=== PATIENT | male | born 1985 | race American Indian/Alaskan Native ===

== ENCOUNTER 2017-04-28 08:43 | Emergency (ER) | payer OTHER ==
[2017-04-28] MEDS ORDERED: ASPIRIN PO ONE (09:02)
[2017-04-28] MEDS ORDERED: DILAUDID IV ONE (09:30)
[2017-04-28] MEDS ORDERED: ZOFRAN IV ONE (09:30)
[2017-04-28 10:02] LABS: Basophils % (Auto) 0.4 % (0.0-1.8); Eosinophils # (Auto) 0.1 K/mm3 (0.0-0.4); Eosinophils % (Auto) 1.6 % (0.0-4.3); Hematocrit 36.6 % (35.5-45.6); Hemoglobin 12.1 gm/dl (11.8-15.2); Lymphocytes # (Auto) 1.6 K/mm3 (1.2-5.4); Lymphocytes % (Auto) 30.4 % (13.4-35.0); Mean Corpuscular HGB Conc 33 % (32-34); Mean Corpuscular Hemoglobin 29 pg (28-32); Mean Corpuscular Volume 87 fl (84-94); Monocytes # (Auto) 0.5 K/mm3 (0.0-0.8); Monocytes % (Auto) 9.8 % (0.0-7.3); Platelet Count 210 K/mm3 (140-440); Red Blood Count 4.24 M/mm3 (3.65-5.03); Red Cell Distribution Width 13.3 % (13.2-15.2)
--- NOTE | 2017-04-28 10:13 | XRay Report ---
ROUTINE CHEST, TWO VIEWS: HISTORY: Chest pain. No comparison. There is poor inspiration with bilateral lower lobe opacities. Lower lung infiltrates or aspiration cannot be excluded. The upper lung zones are relatively clear. No large pleural effusion or pneumothorax. Heart size is within normal limits. The bony structures are grossly intact. IMPRESSION: Poor inspiration with bilateral lower lobe opacities. Correlate for pneumonia or aspiration.
[2017-04-28 10:19] LABS: INR 0.96 (0.87-1.13)
[2017-04-28 11:04] LABS: BUN/Creatinine Ratio 16; Blood Urea Nitrogen 14 mg/dL (9-20); Calcium 8.8 mg/dL (8.4-10.2); Hemolysis Index 3
--- NOTE | 2017-04-28 11:21 | XRay Report ---
AP CHEST: HISTORY: chest pain There is slightly better inspiration when comparing to the exam earlier today at 0955 hours. Bilateral lower lobe opacities are again noted and not significantly changed. The upper lung zones remain clear. Normal heart and mediastinal structures. The bony thorax is intact. IMPRESSION: No significant change in the bilateral lower lung opacities.
[2017-04-28] MEDS ORDERED: TORADOL IV ONE (11:27)
[2017-04-28 11:51] LABS: Creatine Kinase MB 1.3 ng/mL (0.0-4.0)
--- NOTE | 2017-04-28 12:03 | Cat Scan Report ---
CTA CHEST: HISTORY: Chest pain, HIV. COMPARISON: none. TECHNIQUE: Helical CT in 1.25mm intervals following IV contrast. Pulmonary embolus protocol. Sagittal and coronal reformatted images. Rotational MIP images. FINDINGS: Contrast bolus is satisfactory. No pulmonary embolus is identified. Thyroid gland: Normal. Tracheobronchial tree: Normal. Esophagus: Normal. Heart: Normal. Pericardium: Normal. Mediastinum: Normal. Lung Menendez: Patchy peribronchial infiltrates are identified in both lower lung zones. Pneumonia or aspiration should be considered. Pleural Spaces: Normal. Musculoskeletal: Normal. IMPRESSION: No evidence for pulmonary embolus. Bilateral lower lung infiltrates.
[2017-04-28] MEDS ORDERED: ROCEPHIN/NS 1 GM/50 ML 1 GM/50 ML BAG IV ONE (12:20)
[2017-04-28] MEDS ORDERED: ZITHROMAX PO ONE (12:20)
[2017-04-28] MEDS ORDERED: BACTRIM DS PO ONE (12:27)
[2017-04-28] MEDS ORDERED: cefTRIAXone 1 GM in NACL 0.9% 20 ML IV ONE (12:30)
--- NOTE | 2017-04-28 12:44 | Emergency Department Report ---
ED Chest Pain HPI - General Chief Complaint: Chest Pain Stated Complaint: CHEST PAIN Time Seen by Provider: 04/28/17 09:27 Source: patient, EMS Mode of arrival: Stretcher Limitations: No Limitations - History of Present Illness Initial Comments: 31-year-old male with a past medical history HIV with CD4 count < 200 presents to the hospital with complats of sudden onset of bilateral chest pain left greater than right that started while doing light cleaning/housework earlier this morning. Patient also complains of lower back pain. He complains of intermittent spasms and shortness of breath when pain is severe. Pain is worse with palpation, movement, and deep inspiration. Pain is rated 8/10 ub intensity. Patient denies any recent trauma, heavy lifting, cough, fever, travel, calf tenderness, or edema. Patient apply with anti-retroviral medication Severity scale (0 -10): 5 - Related Data Home Medications Medication Instructions Recorded Confirmed Last Taken Darunavir/Cobicistat [Prezcobix 1 each PO DAILY 04/28/17 04/28/17 Unknown 800 mg-150 mg Tablet] TRUVADA 200-300 mg 300 mg PO DAILY 04/28/17 04/28/17 Unknown Previous Rx's Medication Instructions Recorded Last Taken Type Azithromycin 600 mg PO 2XW #4 tablet 04/28/17 Unknown Rx Ibuprofen [Motrin] 800 mg PO Q8HR PRN #30 tablet 04/28/17 Unknown Rx Prednisone [predniSONE 10 mg 10 mg PO .TAPER #1 tab.ds.pk 04/28/17 Unknown Rx (6-Day Pack, 21 Tabs)] Sulfamethoxazole/Trimethoprim 1 each PO DAILY #14 tablet 04/28/17 Unknown Rx [Bactrim 400-80 mg Tablet] oxyCODONE /ACETAMINOPHEN [Percocet 1 tab PO Q6HR PRN #20 tablet 04/28/17 Unknown Rx 5/325] Allergies Allergy/AdvReac Type Severity Reaction Status Date / Time No Known Allergies Allergy Unverified 04/28/17 09:02 Heart Score - HEART Score History: Slightly suspicious EKG: Normal Age: < 45 Risk factors: No known risk factors Troponin: < normal limit HEART Score: 0 ED Review of Systems ROS: Stated complaint: CHEST PAIN Other details as noted in HPI Comment: All other systems reviewed and negative Other: Constitutional: No fevers chills Eyes: No eye pain visual changes ENT: No ear pain or throat pain Neck: Denies pain Respiratory: Denies cough wheezing Cardiovascular: Denies palpitations, syncope GI: Denies abdominal pain, nausea, vomiting, diarrhea : Denies dysuria Musculoskeletal: Denies back pain, joint swelling Skin: Denies rash, lesions, erythema Neurologic: Denies headache, numbness, weakness Psychiatric: Denies suicidal ideation, hallucinations ED Past Medical Hx - Past Medical History Previous Medical History?: Yes Hx HIV: Yes - Surgical History Past Surgical History?: No - Social History Smoking Status: Never Smoker Substance Use Type: None - Medications Home Medications: Home Medications Medication Instructions Recorded Confirmed Last Taken Type Azithromycin 600 mg PO 2XW #4 tablet 04/28/17 Unknown Rx Darunavir/Cobicistat [Prezcobix 1 each PO DAILY 04/28/17 04/28/17 Unknown History 800 mg-150 mg Tablet] Ibuprofen [Motrin] 800 mg PO Q8HR PRN #30 tablet 04/28/17 Unknown Rx Prednisone [predniSONE 10 mg 10 mg PO .TAPER #1 tab.ds.pk 04/28/17 Unknown Rx (6-Day Pack, 21 Tabs)] Sulfamethoxazole/Trimethoprim 1 each PO DAILY #14 tablet 04/28/17 Unknown Rx [Bactrim 400-80 mg Tablet] TRUVADA 200-300 mg 300 mg PO DAILY 04/28/17 04/28/17 Unknown History oxyCODONE /ACETAMINOPHEN [Percocet 1 tab PO Q6HR PRN #20 tablet 04/28/17 Unknown Rx 5/325] ED Physical Exam - General Limitations: No Limitations - Other Other exam information: General: Positive distress secondary to pain Head exam: Atraumatic, normocephalic Eyes exam: Normal appearance, pupils equal reactive to light, extraocular movements intact ENT: Moist mucous membrane, normal oropharynx Neck exam: Normal inspection, full range of motion, no meningismus nontender Respiratory exam: Patient splinting to breathe secondary to pain. Bilateral chest wall tenderness Cardiovascular: Normal rate and rhythm Abdomen: Soft, nondistended, and nontender, with normal bowel sounds, no rebound, or guarding Extremity: Full range of motion normal inspection no deformity, no calf tenderness or edema Back: Normal Inspection, full range of motion, no tenderness Neurologic: Alert, oriented x3, cranial nerves intact, no motor or sensory deficit Psychiatric: normal affect, normal mood Skin: Warm, dry, intact ED Course Vital Signs 04/28/17 04/28/17 04/28/17 08:54 08:57 08:59 Temperature Pulse Rate 80 81 Respiratory 13 16 Rate Blood Pressure 137/90 137/90 O2 Sat by Pulse 98 96 97 Oximetry 04/28/17 04/28/17 04/28/17 09:00 09:01 09:03 Temperature Pulse Rate 82 83 81 Respiratory 15 15 15 Rate Blood Pressure 130/93 130/93 130/93 O2 Sat by Pulse 96 96 96 Oximetry 04/28/17 04/28/17 04/28/17 09:05 09:07 09:09 Temperature Pulse Rate 79 85 79 Respiratory 20 15 22 Rate Blood Pressure 130/93 130/93 130/93 O2 Sat by Pulse 97 97 97 Oximetry 04/28/17 04/28/17 04/28/17 09:11 09:12 09:13 Temperature Pulse Rate 77 77 Respiratory 19 20 14 Rate Blood Pressure 130/93 130/93 O2 Sat by Pulse 97 97 97 Oximetry 04/28/17 04/28/17 04/28/17 09:15 09:17 09:19 Temperature Pulse Rate 79 77 73 Respiratory 14 14 13 Rate Blood Pressure 122/87 122/87 122/87 O2 Sat by Pulse 96 98 96 Oximetry 04/28/17 04/28/17 04/28/17 09:21 09:23 09:25 Temperature Pulse Rate 93 H 93 H 82 Respiratory 16 17 13 Rate Blood Pressure 122/87 122/87 122/87 O2 Sat by Pulse 95 95 97 Oximetry 04/28/17 04/28/17 04/28/17 09:27 09:29 09:30 Temperature Pulse Rate 87 83 79 Respiratory 18 12 18 Rate Blood Pressure 122/87 122/87 117/84 O2 Sat by Pulse 98 98 100 Oximetry 04/28/17 04/28/17 04/28/17 09:31 09:33 09:35 Temperature Pulse Rate 80 73 70 Respiratory 20 22 13 Rate Blood Pressure 117/84 117/84 117/84 O2 Sat by Pulse 99 100 100 Oximetry 04/28/17 04/28/17 04/28/17 09:37 09:39 09:41 Temperature Pulse Rate 72 77 72 Respiratory 20 16 13 Rate Blood Pressure 117/84 117/84 117/84 O2 Sat by Pulse 100 100 100 Oximetry 04/28/17 04/28/17 04/28/17 09:43 09:45 09:47 Temperature Pulse Rate 68 76 74 Respiratory 14 18 15 Rate Blood Pressure 117/84 130/85 130/85 O2 Sat by Pulse 100 100 100 Oximetry 04/28/17 04/28/17 04/28/17 09:48 10:01 10:02 Temperature Pulse Rate 77 69 70 Respiratory 12 21 12 Rate Blood Pressure 130/85 130/85 130/86 O2 Sat by Pulse 100 100 Oximetry 04/28/17 04/28/17 04/28/17 10:03 10:05 10:07 Temperature Pulse Rate 70 72 79 Respiratory 13 11 L 14 Rate Blood Pressure 130/86 130/86 130/86 O2 Sat by Pulse 100 100 99 Oximetry 04/28/17 04/28/17 04/28/17 10:09 10:11 10:13 Temperature Pulse Rate 71 70 78 Respiratory 13 12 11 L Rate Blood Pressure 130/86 130/86 130/86 O2 Sat by Pulse 100 100 100 Oximetry 04/28/17 04/28/17 04/28/17 10:15 10:17 10:19 Temperature Pulse Rate 67 67 72 Respiratory 10 L 7 L 11 L Rate Blood Pressure 130/86 130/86 130/86 O2 Sat by Pulse 99 100 100 Oximetry 04/28/17 04/28/17 04/28/17 10:21 10:23 10:25 Temperature Pulse Rate 79 71 71 Respiratory 13 11 L 11 L Rate Blood Pressure 130/86 130/86 130/86 O2 Sat by Pulse 100 100 100 Oximetry 04/28/17 04/28/17 04/28/17 10:27 10:29 10:30 Temperature Pulse Rate 79 77 66 Respiratory 10 L 13 13 Rate Blood Pressure 130/86 130/86 116/78 O2 Sat by Pulse 100 100 100 Oximetry 04/28/17 04/28/17 04/28/17 10:31 10:33 10:35 Temperature Pulse Rate 64 74 75 Respiratory 11 L 9 L 10 L Rate Blood Pressure 116/78 130/85 130/85 O2 Sat by Pulse 100 100 99 Oximetry 04/28/17 04/28/17 04/28/17 10:37 10:39 10:41 Temperature Pulse Rate 73 66 74 Respiratory 13 12 19 Rate Blood Pressure 130/85 130/85 130/85 O2 Sat by Pulse 99 99 99 Oximetry 04/28/17 04/28/17 04/28/17 10:43 10:45 10:47 Temperature Pulse Rate 68 69 69 Respiratory 12 11 L 10 L Rate Blood Pressure 130/85 130/85 130/85 O2 Sat by Pulse 99 98 99 Oximetry 04/28/17 04/28/17 04/28/17 10:49 10:51 10:53 Temperature Pulse Rate 71 72 66 Respiratory 13 6 L 12 Rate Blood Pressure 130/85 130/85 130/85 O2 Sat by Pulse 100 100 99 Oximetry 04/28/17 04/28/17 04/28/17 10:55 10:57 10:59 Temperature Pulse Rate 68 67 68 Respiratory 12 11 L 10 L Rate Blood Pressure 130/85 130/85 130/85 O2 Sat by Pulse 100 100 100 Oximetry 04/28/17 04/28/17 04/28/17 11:00 11:01 11:03 Temperature Pulse Rate 75 70 69 Respiratory 14 9 L 10 L Rate Blood Pressure 121/78 121/78 121/78 O2 Sat by Pulse 100 100 100 Oximetry 04/28/17 04/28/17 04/28/17 11:05 11:07 11:09 Temperature Pulse Rate 69 74 81 Respiratory 8 L 11 L 13 Rate Blood Pressure 121/78 121/78 121/78 O2 Sat by Pulse 100 100 100 Oximetry 04/28/17 04/28/17 04/28/17 11:11 11:13 11:15 Temperature Pulse Rate 67 69 67 Respiratory 10 L 11 L 10 L Rate Blood Pressure 121/78 121/78 121/78 O2 Sat by Pulse 99 100 99 Oximetry 04/28/17 04/28/17 04/28/17 11:17 11:19 11:21 Temperature Pulse Rate 69 72 76 Respiratory 10 L 9 L 19 Rate Blood Pressure 121/78 121/78 121/78 O2 Sat by Pulse 99 100 100 Oximetry 04/28/17 04/28/17 04/28/17 11:23 11:25 11:27 Temperature Pulse Rate 67 74 69 Respiratory 11 L 12 13 Rate Blood Pressure 121/78 121/78 121/78 O2 Sat by Pulse 100 99 99 Oximetry 04/28/17 04/28/17 04/28/17 11:41 11:43 11:45 Temperature Pulse Rate 72 69 70 Respiratory 13 13 11 L Rate Blood Pressure 121/78 121/78 121/78 O2 Sat by Pulse 99 99 100 Oximetry 04/28/17 04/28/17 04/28/17 11:46 11:47 11:49 Temperature Pulse Rate 74 73 69 Respiratory 13 13 11 L Rate Blood Pressure 125/83 125/83 125/83 O2 Sat by Pulse 100 100 99 Oximetry 04/28/17 04/28/17 04/28/17 11:51 11:53 11:55 Temperature Pulse Rate 67 66 70 Respiratory 9 L 10 L 10 L Rate Blood Pressure 125/83 125/83 125/83 O2 Sat by Pulse 100 99 100 Oximetry 04/28/17 04/28/17 04/28/17 11:57 11:59 12:00 Temperature Pulse Rate 67 68 72 Respiratory 11 L 11 L 17 Rate Blood Pressure 125/83 125/83 127/91 O2 Sat by Pulse 99 99 98 Oximetry 04/28/17 04/28/17 04/28/17 12:01 12:03 12:05 Temperature Pulse Rate 73 69 71 Respiratory 19 12 17 Rate Blood Pressure 127/91 127/91 127/91 O2 Sat by Pulse 100 99 98 Oximetry 04/28/17 04/28/17 04/28/17 12:07 12:09 12:11 Temperature Pulse Rate 65 67 63 Respiratory 11 L 10 L 9 L Rate Blood Pressure 121/78 121/78 121/78 O2 Sat by Pulse 100 99 100 Oximetry 04/28/17 04/28/17 04/28/17 12:13 12:15 12:17 Temperature Pulse Rate 63 60 69 Respiratory 15 11 L 12 Rate Blood Pressure 121/78 121/78 121/78 O2 Sat by Pulse 100 100 100 Oximetry 04/28/17 04/28/17 04/28/17 12:19 12:20 12:21 Temperature 98.0 F Pulse Rate 62 60 Respiratory 9 L 10 L Rate Blood Pressure 121/78 121/78 O2 Sat by Pulse 99 100 Oximetry - Reevaluation(s) Reevaluation #1: 04/28/17 13:57 Patient received morphine and Zofran prior to arrival without improvement in pain. Pain improved with the Dilaudid, Toradol, additional Zofran - Consultations Consultation #1: 04/28/17 13:59 Patient received hospitalist consultation performed by Dr. Osorio. Advised his treatment for atypical pneumonia as well as PCP given a history of HIV and verify CD4 count. Please refer to his note and prescribed medications ZORAIDA score - Zoraida Score Age > 65: (0) No Aspirin use within the Past 7 Days: (0) No 3 or more CAD Risk Factors: (0) No 2 or more Angina events in past 24 hrs: (0) No Known CAD with more than 50% Stenosis: (0) No Elevated Cardiac Markers: (0) No ST Deviation Greater than 0.5mm: (0) No ZORAIDA Score: 0 ED Medical Decision Making - Lab Data Result diagrams: 04/28/17 09:36 04/28/17 09:36 Lab Results 04/28/17 04/28/17 04/28/17 Range/Units 09:36 09:36 09:55 WBC 5.1 (4.5-11.0) K/mm3 RBC 4.24 (3.65-5.03) M/mm3 Hgb 12.1 (11.8-15.2) gm/dl Hct 36.6 (35.5-45.6) % MCV 87 (84-94) fl MCH 29 (28-32) pg MCHC 33 (32-34) % RDW 13.3 (13.2-15.2) % Plt Count 210 (140-440) K/mm3 Lymph % (Auto) 30.4 (13.4-35.0) % Borden % (Auto) 9.8 H (0.0-7.3) % Eos % (Auto) 1.6 (0.0-4.3) % Baso % (Auto) 0.4 (0.0-1.8) % Lymph # 1.6 (1.2-5.4) K/mm3 Borden # 0.5 (0.0-0.8) K/mm3 Eos # 0.1 (0.0-0.4) K/mm3 Baso # 0.0 (0.0-0.1) K/mm3 Seg Neutrophils % 57.8 (40.0-70.0) % Seg Neutrophils # 2.9 (1.8-7.7) K/mm3 PT 13.3 (12.2-14.9) Sec. INR 0.96 (0.87-1.13) D-Dimer (0-234) ng/mlDDU Sodium 136 L (137-145) mmol/L Potassium 4.2 (3.6-5.0) mmol/L Chloride 100.7 (98-107) mmol/L Carbon Dioxide 22 (22-30) mmol/L Anion Gap 18 mmol/L BUN 14 (9-20) mg/dL Creatinine 0.9 (0.8-1.5) mg/dL Estimated GFR > 60 ml/min BUN/Creatinine Ratio 16 % Glucose 97 (75-100) mg/dL Calcium 8.8 (8.4-10.2) mg/dL Total Creatine Kinase (55-170) units/L CK-MB (CK-2) (0.0-4.0) ng/mL CK-MB (CK-2) Rel Index (0-4) Troponin T < 0.010 (0.00-0.029) ng/mL 04/28/17 04/28/17 04/28/17 Range/Units 09:55 11:26 12:04 WBC (4.5-11.0) K/mm3 RBC (3.65-5.03) M/mm3 Hgb (11.8-15.2) gm/dl Hct (35.5-45.6) % MCV (84-94) fl MCH (28-32) pg MCHC (32-34) % RDW (13.2-15.2) % Plt Count (140-440) K/mm3 Lymph % (Auto) (13.4-35.0) % Borden % (Auto) (0.0-7.3) % Eos % (Auto) (0.0-4.3) % Baso % (Auto) (0.0-1.8) % Lymph # (1.2-5.4) K/mm3 Borden # (0.0-0.8) K/mm3 Eos # (0.0-0.4) K/mm3 Baso # (0.0-0.1) K/mm3 Seg Neutrophils % (40.0-70.0) % Seg Neutrophils # (1.8-7.7) K/mm3 PT (12.2-14.9) Sec. INR (0.87-1.13) D-Dimer < 135.00 (0-234) ng/mlDDU Sodium (137-145) mmol/L Potassium (3.6-5.0) mmol/L Chloride (98-107) mmol/L Carbon Dioxide (22-30) mmol/L Anion Gap mmol/L BUN (9-20) mg/dL Creatinine (0.8-1.5) mg/dL Estimated GFR ml/min BUN/Creatinine Ratio % Glucose (75-100) mg/dL Calcium (8.4-10.2) mg/dL Total Creatine Kinase 212 H (55-170) units/L CK-MB (CK-2) 1.3 (0.0-4.0) ng/mL CK-MB (CK-2) Rel Index 0.6 (0-4) Troponin T < 0.010 (0.00-0.029) ng/mL - Radiology Data Radiology results: report reviewed Read by radiology CT angiogram chest: No pulmonary embolus. Bilateral lower lung infiltrate Chest x-ray PA and lateral: Poor expiratory film probable bilateral pulmonary infiltrates - Medical Decision Making Bilateral chest pain Patient has bilateral pulmonary infiltrates without clinical signs of pneumonia No hypoxia, leukocytosis, or fever. Patient did not have any desaturation with ambulation in the ED Patient treated in the ED with narcotic pain medication, Toradol, by mouth azithromycin, IV Rocephin, and by mouth Bactrim Patient will be discharged home on Bactrim, azithromycin, and prednisone as per hospitalist recommendation for Mac coverage and PCP pneumonia prophylaxis Patient on PSI patient has a low severity index and is a candidate for outpatient treated Patient will be encouraged to follow-up with infectious disease/PCP within 3-5 days - Differential Diagnosis PE, costochondritis, chest wall pain, pneumonia, bronchitis, pneumothorax Critical Care Time: No Critical care attestation.: If time is entered above; I have spent that time in minutes in the direct care of this critically ill patient, excluding procedure time. ED Disposition Clinical Impression: Bilateral pneumonia, HIV (human immunodeficiency virus infection), Chest pain Disposition: TO HOME OR SELFCARE Is pt being admited?: No Condition: Stable Instructions: Chest Pain (ED), Community-acquired Pneumonia (ED) Additional Instructions: Take the medication as prescribed. Follow-up with your infectious disease doctor or primary care doctor within 3-5 days. Return is symptoms worsen as discussed or as indicated by your discharge instructions. Prescriptions: Azithromycin 600 mg PO 2XW #4 tablet Ibuprofen [Motrin] 800 mg PO Q8HR PRN #30 tablet PRN Reason: Pain oxyCODONE /ACETAMINOPHEN [Percocet 5/325] 1 tab PO Q6HR PRN #20 tablet PRN Reason: Pain Prednisone [predniSONE 10 mg (6-Day Pack, 21 Tabs)] 10 mg PO .TAPER #1 tab.ds.pk Sulfamethoxazole/Trimethoprim [Bactrim 400-80 mg Tablet] 1 each PO DAILY #14 tablet Referrals: PRIMARY CARE,MD [Primary Care Provider] - 3-5 Days your ID, doctor [Other] - 3-5 Days Time of Disposition: 14:37
[2017-04-28 14:41] VITALS: BP 102/70
== END 2017-04-28 14:51 | disposition home or self-care (01) ==
LOC: ED 08:43
DX: J18.9 Pneumonia, unspecified organism (principal); R07.9 Chest pain, unspecified
CPT/HCPCS: 36415; 71045; 71046; 71275; 80048; 82550; 82553; 84484; 85025; 85379; 85610; 87040; 93005; 93010; 96365; 96375; 99285; J0696; J1170; J1885; J2405; Q9967

== ENCOUNTER 2020-01-17 00:49 | Emergency (ER) | payer OTHER ==
[2020-01-17 03:35] LABS: Basophils # (Auto) 0.2 K/mm3 (0.0-0.1); Basophils % (Auto) 2.3 % (0.0-1.8); Eosinophils % (Auto) 0.1 % (0.0-4.3); Hematocrit 41.2 % (35.5-45.6); Hemoglobin 13.6 gm/dl (11.8-15.2); Lymphocytes # (Auto) 3.8 K/mm3 (1.2-5.4); Lymphocytes % (Auto) 40.8 % (13.4-35.0); Mean Corpuscular HGB Conc 33 % (32-34); Mean Corpuscular Volume 90 fl (84-94); Monocytes # (Auto) 0.7 K/mm3 (0.0-0.8); Monocytes % (Auto) 7.1 % (0.0-7.3); Platelet Count 264 K/mm3 (140-440); Red Blood Count 4.59 M/mm3 (3.65-5.03); Red Cell Distribution Width 12.2 % (13.2-15.2)
[2020-01-17 03:55] LABS: BUN/Creatinine Ratio 8; Blood Urea Nitrogen 10 mg/dL (9-20); Calcium 8.9 mg/dL (8.4-10.2); Hemolysis Index 15
[2020-01-17] MEDS ORDERED: metroNIDAZOLE/NS 500 MG/100 ML 500 MG/100 ML BAG IV SCH (04:29)
[2020-01-17] MEDS ORDERED: CEFEPIME/NS 2 GM/100 ML 2 GM/100 ML BAG IV SCH (04:29)
[2020-01-17] MEDS ORDERED: SODIUM CHLORIDE 0.9% 1000 ML 1,000 ML IV ONE (04:30)
[2020-01-17] MEDS ORDERED: KETOROLAC 30 MG/1 ML INJ IV ONE (04:32)
[2020-01-17] MEDS ORDERED: FAMOTIDINE 20 MG/2 ML INJ IV ONE (04:32)
--- NOTE | 2020-01-17 05:07 | Emergency Department Report ---
ED Abdominal Pain HPI - General Chief Complaint: GI Bleed Stated Complaint: BLEEDING FROM RECTUM/COVID + Time Seen by Provider: 01/17/20 04:28 Source: patient Mode of arrival: Ambulatory Limitations: No Limitations - History of Present Illness Initial Comments: Patient is a 34-year-old F Vietnamese male who is Covid positive who is complaining of 5 days of abdominal discomfort and cramps with GI bleed. Patient states he has dark bloody stools which are loose. Patient states abdominal pain is diffuse and crampy. Patient denies vomiting has had fevers. States there has been no cough. Patient tested positive after being exposed with a coworker. - Related Data Home Medications Medication Instructions Recorded Confirmed Last Taken Darunavir/Cobicistat [Prezcobix 1 each PO DAILY 04/28/17 04/28/17 Unknown 800 mg-150 mg Tablet] TRUVADA 200-300 mg 300 mg PO DAILY 04/28/17 04/28/17 Unknown Previous Rx's Medication Instructions Recorded Last Taken Type Azithromycin 600 mg PO 2XW #4 tablet 04/28/17 Unknown Rx Ibuprofen [Motrin] 800 mg PO Q8HR PRN #30 tablet 04/28/17 Unknown Rx Prednisone [predniSONE 10 mg 10 mg PO .TAPER #1 tab.ds.pk 04/28/17 Unknown Rx (6-Day Pack, 21 Tabs)] Sulfamethoxazole/Trimethoprim 1 each PO DAILY #14 tablet 04/28/17 Unknown Rx [Bactrim 400-80 mg Tablet] oxyCODONE /ACETAMINOPHEN [Percocet 1 tab PO Q6HR PRN #20 tablet 04/28/17 Unknown Rx 5/325] Ciprofloxacin HCl [Ciprofloxacin 500 mg PO Q12HR #14 tab 01/17/20 Unknown Rx TAB] Dicyclomine [Bentyl] 20 mg PO QID #10 tablet 01/17/20 Unknown Rx metroNIDAZOLE [Flagyl] 500 mg PO Q12HR #14 tab 01/17/20 Unknown Rx predniSONE [Deltasone] 20 mg PO QDAY #5 tab 01/17/20 Unknown Rx Allergies Allergy/AdvReac Type Severity Reaction Status Date / Time No Known Allergies Allergy Unverified 04/28/17 09:02 ED Review of Systems ROS: Stated complaint: BLEEDING FROM RECTUM/COVID + Other details as noted in HPI Comment: All other systems reviewed and negative ED Past Medical Hx - Past Medical History Previous Medical History?: Yes Hx HIV: Yes - Surgical History Past Surgical History?: No - Social History Smoking Status: Never Smoker Substance Use Type: None - Medications Home Medications: Home Medications Medication Instructions Recorded Confirmed Last Taken Type Azithromycin 600 mg PO 2XW #4 tablet 04/28/17 Unknown Rx Darunavir/Cobicistat [Prezcobix 1 each PO DAILY 04/28/17 04/28/17 Unknown History 800 mg-150 mg Tablet] Ibuprofen [Motrin] 800 mg PO Q8HR PRN #30 tablet 04/28/17 Unknown Rx Prednisone [predniSONE 10 mg 10 mg PO .TAPER #1 tab.ds.pk 04/28/17 Unknown Rx (6-Day Pack, 21 Tabs)] Sulfamethoxazole/Trimethoprim 1 each PO DAILY #14 tablet 04/28/17 Unknown Rx [Bactrim 400-80 mg Tablet] TRUVADA 200-300 mg 300 mg PO DAILY 04/28/17 04/28/17 Unknown History oxyCODONE /ACETAMINOPHEN [Percocet 1 tab PO Q6HR PRN #20 tablet 04/28/17 Unknown Rx 5/325] Ciprofloxacin HCl [Ciprofloxacin 500 mg PO Q12HR #14 tab 01/17/20 Unknown Rx TAB] Dicyclomine [Bentyl] 20 mg PO QID #10 tablet 01/17/20 Unknown Rx metroNIDAZOLE [Flagyl] 500 mg PO Q12HR #14 tab 01/17/20 Unknown Rx predniSONE [Deltasone] 20 mg PO QDAY #5 tab 01/17/20 Unknown Rx ED Physical Exam - General Limitations: No Limitations General appearance: alert, in no apparent distress - Head Head exam: Present: atraumatic, normocephalic - Eye Eye exam: Present: normal appearance - ENT ENT exam: Present: mucous membranes moist - Neck Neck exam: Present: normal inspection - Respiratory Respiratory exam: Present: normal lung sounds bilaterally. Absent: respiratory distress, wheezes, rales, rhonchi - Cardiovascular Cardiovascular Exam: Present: regular rate, normal rhythm. Absent: systolic murmur, diastolic murmur, rubs, gallop - GI/Abdominal GI/Abdominal exam: Present: soft, tenderness (diffuse), normal bowel sounds. Absent: distended, guarding, rebound, rigid, organomegaly - Rectal Rectal exam: Present: heme (+) stool, bloody stool - Extremities Exam Extremities exam: Present: normal inspection - Back Exam Back exam: Present: normal inspection - Neurological Exam Neurological exam: Present: alert, oriented X3 - Psychiatric Psychiatric exam: Present: normal affect, normal mood - Skin Skin exam: Present: warm, dry, intact, normal color. Absent: rash ED Course Vital Signs 01/17/20 01/17/20 01:32 04:25 Temperature 100.5 F H 99.2 F Pulse Rate 97 H 97 H Respiratory 18 18 Rate Blood Pressure 127/82 Blood Pressure 144/86 [Right] O2 Sat by Pulse 97 97 Oximetry ED Medical Decision Making - Lab Data Result diagrams: 01/17/20 02:17 01/17/20 02:17 Lab Results 01/17/20 01/17/20 Range/Units 02:17 02:17 WBC 9.2 (4.5-11.0) K/mm3 RBC 4.59 (3.65-5.03) M/mm3 Hgb 13.6 (11.8-15.2) gm/dl Hct 41.2 (35.5-45.6) % MCV 90 (84-94) fl MCH 30 (28-32) pg MCHC 33 (32-34) % RDW 12.2 L (13.2-15.2) % Plt Count 264 (140-440) K/mm3 Lymph % (Auto) 40.8 H (13.4-35.0) % [place] % (Auto) 7.1 (0.0-7.3) % Eos % (Auto) 0.1 (0.0-4.3) % Baso % (Auto) 2.3 H (0.0-1.8) % Lymph # (Auto) 3.8 (1.2-5.4) K/mm3 [place] # (Auto) 0.7 (0.0-0.8) K/mm3 Eos # (Auto) 0.0 (0.0-0.4) K/mm3 Baso # (Auto) 0.2 H (0.0-0.1) K/mm3 Seg Neutrophils % 49.7 (40.0-70.0) % Seg Neutrophils # 4.6 (1.8-7.7) K/mm3 Sodium 136 L (137-145) mmol/L Potassium 4.0 (3.6-5.0) mmol/L Chloride 100.8 (98-107) mmol/L Carbon Dioxide 25 (22-30) mmol/L Anion Gap 14 mmol/L BUN 10 (9-20) mg/dL Creatinine 1.2 (0.8-1.3) mg/dL Estimated GFR > 60 ml/min BUN/Creatinine Ratio 8 % Glucose 92 (75-100) mg/dL Calcium 8.9 (8.4-10.2) mg/dL - Radiology Data [facility] [address] [place] [address] Cat Scan Report Signed Patient: ALLEN MATA MR #: [id number] : 1985 Acct:[id number] Age/Sex: 34 / M ADM Date: 01/17/20 Loc: ED Attending Dr: Ordering Physician: RENAN PURCELL MD Date of Service: 01/17/20 Procedure(s): CT abdomen pelvis w con Accession Number(s): [id number] cc: RENAN PURCELL MD CT ABDOMEN AND PELVIS WITH IV CONTRAST INDICATION: abd pain with GI bleed. COMPARISON: None available. TECHNIQUE: All CT scans at this facility use dose modulation, automated exposure control, iterative reconstruction or weight based dosing, when appropriate, to reduce radiation dose to as low as reasonably achievable. FINDINGS: Lung Bases: On the superior most axial images, somewhat nodular groundglass opacities are seen within the inferior right upper lobe and lingula. The larger in the lingula measures 1.2 cm. Skeletal System: No acute abnormality. ABDOMEN: Liver: No significant abnormality. Gallbladder: No significant abnormality. Bile Ducts: No significant abnormality. Pancreas: No significant abnormality. Spleen: No significant abnormality. Adrenals: No significant abnormality. Right Kidney: There is a punctate nonobstructing calyceal stone. Left Kidney: There are couple punctate nonobstructing calyceal stones. Tiny cyst is noted within the anterior cortex. Upper GI tract: No significant abnormality. Lymph Nodes: No significant adenopathy. Aorta: No significant abnormality. Additional Findings: No significant abnormality. PELVIS: Colon: There is colonic wall thickening in the distal colon, greatest in the rectum. Urinary Bladder and Distal Ureters: No significant abnormality. Appendix: Not visualized. Lymph Nodes: Bilateral internal iliac chain adenopathy is noted. Additional Findings: None. IMPRESSION: 1. Distal colitis. This could be infectious in etiology. Ulcerative colitis could have this appearance. Bilateral iliac chain adenopathy is likely reactive. Follow-up colonoscopy should be considered. 2. Somewhat nodular groundglass opacities in the lungs, as described above. Given the patient's age, these are likely inflammatory in etiology. Signer Name: Nathan Tyson MD Signed: 01/17/2020 5:43 AM Workstation Name: [id number] - Medical Decision Making Patient vital signs are within normal limits and he looks relatively well. Patient will be started on antibiotics for colitis. Likely had a Covid diarrhea with some infiltration into the colon wall with some bacteria from the stool. Patient started on antibiotics will be discharged home. Critical care attestation.: If time is entered above; I have spent that time in minutes in the direct care of this critically ill patient, excluding procedure time. ED Disposition Clinical Impression: Infectious colitis, COVID-19 Disposition: DC-01 TO HOME OR SELFCARE Is pt being admited?: No Does the pt Need Aspirin: No Condition: Stable Instructions: COVID-19, Colitis Referrals: IAN COBIAN MD [Primary Care Provider] - 3-5 Days Forms: Accompanied Note Time of Disposition: 05:55
--- NOTE | 2020-01-17 05:47 | Cat Scan Report ---
CT ABDOMEN AND PELVIS WITH IV CONTRAST INDICATION: abd pain with GI bleed. COMPARISON: None available. TECHNIQUE: All CT scans at this facility use dose modulation, automated exposure control, iterative reconstructi on or weight based dosing, when appropriate, to reduce radiation dose to as low as reasonably achieva ble. FINDINGS: Lung Bases: On the superior most axial images, somewhat nodular groundglass opacities are seen within the inferior right upper lobe and lingula. The larger in the lingula measures 1.2 cm. Skeletal System: No acute abnormality. ABDOMEN: Liver: No significant abnormality. Gallbladder: No significant abnormality. Bile Ducts: No significant abnormality. Pancreas: No significant abnormality. Spleen: No significant abnormality. Adrenals: No significant abnormality. Right Kidney: There is a punctate nonobstructing calyceal stone. Left Kidney: There are couple punctate nonobstructing calyceal stones. Tiny cyst is noted within the anterior cortex. Upper GI tract: No significant abnormality. Lymph Nodes: No significant adenopathy. Aorta: No significant abnormality. Additional Findings: No significant abnormality. PELVIS: Colon: There is colonic wall thickening in the distal colon, greatest in the rectum. Urinary Bladder and Distal Ureters: No significant abnormality. Appendix: Not visualized. Lymph Nodes: Bilateral internal iliac chain adenopathy is noted. Additional Findings: None. IMPRESSION: 1. Distal colitis. This could be infectious in etiology. Ulcerative colitis could have this appearan ce. Bilateral iliac chain adenopathy is likely reactive. Follow-up colonoscopy should be considered. 2. Somewhat nodular groundglass opacities in the lungs, as described above. Given the patient's age, these are likely inflammatory in etiology. Signer Name: Nathan Tyson MD Signed: 01/17/2020 5:43 AM Workstation Name: [id number]
[2020-01-17 06:56] LABS: Bacteria,Urine 1+ /HPF (Negative); Bilirubin,Urine NEG (Negative); Blood,Urine SM (Negative); Color,Urine Yellow (Yellow); Mucus,Urine FEW /HPF; Protein,Urine <15 mg/dL mg/dL (Negative); Urobilinogen,Urine < 2.0 mg/dL (<2.0)
[2020-01-17 07:53] VITALS: BP 124/74
== END 2020-01-17 07:54 | disposition home or self-care (01) ==
LOC: ED 00:49
DX: U07.1 COVID-19 (principal); A09 Infectious gastroenteritis and colitis, unspecified; Z21 Asymptomatic human immunodeficiency virus [HIV] infection status; Z79.899 Other long term (current) drug therapy
CPT/HCPCS: 36415; 74177; 80048; 81001; 82140; 85025; 87040; 96365; 96367; 96375; 99284; J0692; J1885; J7030; Q9967